=== PATIENT | male | born 2000 | race Caucasian/White ===

== ENCOUNTER 2019-09-16 01:06 | Emergency (ER) | payer SELFPAY ==
[~2019-09-16] VITALS: Ht 190 cm; Wt 88.0 kg
[2019-09-16] MEDS ORDERED: morphine INJ 10 MG/ML 1ML (SYR OR VIAL) IM STA (01:15)
[2019-09-16] MEDS ORDERED: ONDANSETRON 4 MG (ZOFRAN) ORAL DISSOLVE TAB PO STA (01:15)
[2019-09-16] MEDS ORDERED: ORPHENADRINE 60 MG/2 ML (NORFLEX) AMP IM ONE (01:15)
--- OUTSIDE RECORDS SUMMARY | 2019-09-16 01:15 | XMS REPORT | Continuity of Care Document ---
Author Organization Unknown Address Unknown Phone Unavailable Allergies There is no data. Medications There is no data. Problems There is no data. Procedures There is no data. Results There is no data. Encounters ACCT No. Visit Date/Time Discharge Status Pt. Type Provider Facility Loc./Unit Complaint [id number] 10/16/2018 11:20:00 10/16/2018 23:59: 59 CLS Outpatient SELF, MARVA Morris [facility]
[2019-09-16 02:56] VITALS: BP 114/55
[2019-09-16] MEDS ORDERED: CYCL10TA9 PO (03:04)
[2019-09-16] MEDS ORDERED: TRM50T PO (03:04)
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
--- NOTE | 2019-09-16 05:57 | Diagnostic Imaging Report ---
PROCEDURE: CT thoracic spine without contrast. TECHNIQUE: Multiple axial computerized tomography images were obtained from the base of the thoracic spine to the vertex without intravenous contrast. Auto Exposure Controls were utilized during the CT exam to meet ALARA standards for radiation dose reduction. INDICATION: Back pain. FINDINGS: The alignment of the thoracic spine is normal. The vertebral body heights are well-maintained. There is no fracture or traumatic subluxation. Bony encroachment on spinal canal. Visualized lungs are clear. There is no pleural effusion. There is no pneumothorax. IMPRESSION: Unremarkable CT thoracic spine Dictated by: Dictated on workstation # [id number]
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
== END 2019-09-16 03:06 | disposition home or self-care (01) ==
LOC: ER FS 01:12
DX: S06.0X1A Concussion with loss of consciousness of 30 minutes or less, initial encounter (principal); S13.4XXA Sprain of ligaments of cervical spine, initial encounter; S33.5XXA Sprain of ligaments of lumbar spine, initial encounter; S60.511A Abrasion of right hand, initial encounter; S60.512A Abrasion of left hand, initial encounter; S40.211A Abrasion of right shoulder, initial encounter; S40.212A Abrasion of left shoulder, initial encounter; R40.2142 Coma scale, eyes open, spontaneous, at arrival to emergency department; R40.2242 Coma scale, best verbal response, confused conversation, at arrival to emergency department; R40.2362 Coma scale, best motor response, obeys commands, at arrival to emergency department; V86.05XA Driver of 3- or 4- wheeled all-terrain vehicle (ATV) injured in traffic accident, initial encounter
CPT/HCPCS: 70450; 71045; 72125; 72128; 72131